=== PATIENT | male | born 1995 | race Caucasian/White ===

== ENCOUNTER 2017-03-13 21:11 | Emergency (ER) | payer OTHER ==
[2017-03-13] MEDS ORDERED: Sodium Chloride 0.9% 1,000 ML IV ONE (21:41)
--- NOTE | 2017-03-13 22:02 | EDM.PDOC ---
<Sekou Johnson - Last Filed: 03/13/17 21:59> ED HPI GI/ABDOMINAL - General Chief Complaint: Abdominal Pain Stated Complaint: VOMIT Time Seen by Provider: 03/13/17 21:40 Source of Information: Reports: Patient History Limitations: Reports: No limitations - History of Present Illness INITIAL COMMENTS - FREE TEXT/NARRATIVE: History of present illness: [21-year-old male presenting with history of bilateral inguinal hernia repair with placement of mesh. Now patient indicates that the area there feels spongy and at times feels painful and like there are bubbles underneath. Patient indicates he's had periods of nausea and vomiting and he feels that there is concern for entrapment and would like to be evaluated. Patient indicates one of his biggest concerns is that he might have had mesh migration.] Review of systems: As per history of present illness and below otherwise all systems reviewed and negative. Past medical history: As per history of present illness and as reviewed below otherwise noncontributory. Surgical history: As per history of present illness and as reviewed below otherwise noncontributory. Social history: No reported history of drug or alcohol abuse. Family history: As per history of present illness and as reviewed below otherwise noncontributory. Physical exam: HEENT: Atraumatic, normocephalic, pupils reactive, negative for conjunctival pallor or scleral icterus, mucous membranes moist, throat clear, neck supple, nontender, trachea midline. Lungs: Clear to auscultation, breath sounds equal bilaterally, chest nontender. Heart: S1S2, regular, negative for clicks, rubs, or JVD. Abdomen: Soft, nondistended, nontender. Negative for masses or hepatosplenomegaly. Negative for costovertebral tenderness. Pelvis: Stable nontender. Genitourinary: Deferred. Rectal: Deferred. Extremities: Atraumatic, negative for cords or calf pain. Neurovascular unremarkable. Neuro: Awake, alert, oriented. Cranial nerves II through XII unremarkable. Cerebellum unremarkable. Motor and sensory unremarkable throughout. Exam nonfocal. Global assessment is benign other than noted in the history of present illness. Lateral inguinal area palpated with soft area noted over area of repair but no bulging appreciated nor entrapment noted. Patient is without any nausea and vomiting at this time he indicates it is worse shortly after eating Diagnostics: [CBC, CMP] Therapeutics: [IV fluid] Impression: [] Plan: [] Definitive disposition and diagnosis as appropriate pending reevaluation and review of above. - Related Data Allergies/ADRs: Allergies Allergy/AdvReac Type Severity Reaction Status Date / Time tramadol Allergy Seizure Verified 03/13/17 21:27 Home Meds: Home Meds . [No Known Home Meds] 10/10/14 [History] Past Medical History - Infectious Disease History Infectious Disease History: Reports: Chicken pox - Past Surgical History GI Surgical History: Reports: Hernia repair/other Other GI Surgeries/Procedures: Bilateral inguinal hernia removal 2012 Social & Family History - Family History Family Medical History: Noncontributory - Tobacco Use Smoking Status *Q: Current Every Day Smoker Years of Tobacco use: 6 Packs/Tins Daily: 0.5 Used Tobacco, but Quit: No Second Hand Smoke Exposure: No - Caffeine Use Caffeine Use: Reports: None - Alcohol Use Days Per Week of Alcohol Use: 0 - Recreational Drug Use Recreational Drug Use: No ED ROS GENERAL - Review of Systems Review Of Systems: See Below (See history of present illness) ED EXAM, GI/ABD - Physical Exam Exam: See Below (The history of present illness) Course - Vital Signs Last Recorded V/S: Last Vital Signs Temp 36.6 C 03/13/17 21:23 Pulse 102 H 03/13/17 21:23 Resp 18 03/13/17 21:23 BP 132/102 H 03/13/17 21:23 Pulse Ox 95 03/13/17 21:23 - Orders/Labs/Meds Orders: Active Orders 24 hr Category Date Time Status Abdomen Pelvis w Cont [CT] Stat Exams 03/13/17 21:41 Taken Sodium Chloride 0.9% [Normal Saline] 1,000 ml Med 03/13/17 21:41 Active IV STAT Medication Orders Sodium Chloride (Normal Saline) 1,000 mls @ 125 mls/hr IV STAT ONE Stop: 03/14/17 05:40 Last Admin: 03/13/17 22:14 Dose: 125 mls/hr Labs: Laboratory Tests 03/13/17 03/13/17 03/13/17 Range/Units 21:45 21:45 21:45 WBC 8.60 (4.0-11.0) K/uL RBC 5.56 (4.50-5.90) M/uL Hgb 16.7 (13.0-17.0) g/dL Hct 47.2 (38.0-50.0) % MCV 84.9 (80.0-98.0) fL MCH 30.0 (27.0-32.0) pg MCHC 35.4 (31.0-37.0) g/dL RDW Std Deviation 39.3 (28.0-62.0) fl RDW Coeff of Ignacio 13 (11.0-15.0) % Plt Count 311 (150-400) K/uL MPV 9.20 (7.40-12.00) fL Neut % (Auto) 45.7 L (48.0-80.0) % Lymph % (Auto) 42.9 H (16.0-40.0) % Pima % (Auto) 10.2 (0.0-15.0) % Eos % (Auto) 1.0 (0.0-7.0) % Baso % (Auto) 0.2 (0.0-1.5) % Neut # (Auto) 3.9 (1.4-5.7) K/uL Lymph # (Auto) 3.7 H (0.6-2.4) K/uL Pima # (Auto) 0.9 H (0.0-0.8) K/uL Eos # (Auto) 0.1 (0.0-0.7) K/uL Baso # (Auto) 0.0 (0.0-0.1) K/uL Nucleated RBC % 0.0 /100WBC Nucleated RBCs # 0 K/uL Sodium 140 (136-146) mmol/L Potassium 3.9 (3.5-5.1) mmol/L Chloride 106 (98-110) mmol/L Carbon Dioxide 24 (21-31) mmol/L BUN 16 (6.0-23.0) mg/dL Creatinine 1.3 (0.6-1.5) mg/dL Est Cr Clr Drug Dosing 106.53 mL/min Estimated GFR (MDRD) > 60.0 ml/min Glucose 87 (60-110) mg/dL Calcium 10.9 H (8.8-10.8) mg/dL Total Bilirubin 1.7 H (0.1-1.5) mg/dL AST 21 (5-40) IU/L ALT 17 (8-54) IU/L Alkaline Phosphatase 69 (40-150) Total Protein 8.1 H (6.0-8.0) g/dL Albumin 4.7 (3.5-5.0) g/dL Globulin 3.4 (2.0-3.5) g/dL Albumin/Globulin Ratio 1.4 (1.3-2.8) Amylase 70 (10-90) U/L Lipase 22 (7-80) U/L Urine Color Urine Appearance Urine pH (5.0-8.0) Ur Specific Goodman (1.001-1.035) Urine Protein (NEGATIVE) mg/dL Urine Glucose (UA) (NEGATIVE) mg/dL Urine Ketones (NEGATIVE) mg/dL Urine Occult Blood (NEGATIVE) Urine Nitrite (NEGATIVE) Urine Bilirubin (NEGATIVE) Urine Urobilinogen (<2.0) EU/dL Ur Leukocyte Esterase (NEGATIVE) Urine RBC (0-2/HPF) Urine WBC (0-5/HPF) Ur Epithelial Cells (NONE-FEW) Urine Bacteria (NEGATIVE) Urine Mucus (NONE-MOD) 03/13/17 Range/Units 23:05 WBC (4.0-11.0) K/uL RBC (4.50-5.90) M/uL Hgb (13.0-17.0) g/dL Hct (38.0-50.0) % MCV (80.0-98.0) fL MCH (27.0-32.0) pg MCHC (31.0-37.0) g/dL RDW Std Deviation (28.0-62.0) fl RDW Coeff of Ignacio (11.0-15.0) % Plt Count (150-400) K/uL MPV (7.40-12.00) fL Neut % (Auto) (48.0-80.0) % Lymph % (Auto) (16.0-40.0) % Pima % (Auto) (0.0-15.0) % Eos % (Auto) (0.0-7.0) % Baso % (Auto) (0.0-1.5) % Neut # (Auto) (1.4-5.7) K/uL Lymph # (Auto) (0.6-2.4) K/uL Pima # (Auto) (0.0-0.8) K/uL Eos # (Auto) (0.0-0.7) K/uL Baso # (Auto) (0.0-0.1) K/uL Nucleated RBC % /100WBC Nucleated RBCs # K/uL Sodium (136-146) mmol/L Potassium (3.5-5.1) mmol/L Chloride (98-110) mmol/L Carbon Dioxide (21-31) mmol/L BUN (6.0-23.0) mg/dL Creatinine (0.6-1.5) mg/dL Est Cr Clr Drug Dosing mL/min Estimated GFR (MDRD) ml/min Glucose (60-110) mg/dL Calcium (8.8-10.8) mg/dL Total Bilirubin (0.1-1.5) mg/dL AST (5-40) IU/L ALT (8-54) IU/L Alkaline Phosphatase (40-150) Total Protein (6.0-8.0) g/dL Albumin (3.5-5.0) g/dL Globulin (2.0-3.5) g/dL Albumin/Globulin Ratio (1.3-2.8) Amylase (10-90) U/L Lipase (7-80) U/L Urine Color YELLOW Urine Appearance CLEAR Urine pH 5.5 (5.0-8.0) Ur Specific Goodman 1.010 (1.001-1.035) Urine Protein NEGATIVE (NEGATIVE) mg/dL Urine Glucose (UA) NEGATIVE (NEGATIVE) mg/dL Urine Ketones NEGATIVE (NEGATIVE) mg/dL Urine Occult Blood NEGATIVE (NEGATIVE) Urine Nitrite NEGATIVE (NEGATIVE) Urine Bilirubin NEGATIVE (NEGATIVE) Urine Urobilinogen 0.2 (<2.0) EU/dL Ur Leukocyte Esterase NEGATIVE (NEGATIVE) Urine RBC 0-1 (0-2/HPF) Urine WBC NONE SEEN (0-5/HPF) Ur Epithelial Cells RARE (NONE-FEW) Urine Bacteria RARE (NEGATIVE) Urine Mucus LIGHT (NONE-MOD) Meds: Medications Generic Name Dose Route Start Last Admin Trade Name Freq PRN Reason Stop Dose Admin Sodium Chloride 1,000 mls @ 125 mls/hr 03/13/17 21:41 03/13/17 22:14 Normal Saline IV 03/14/17 05:40 125 mls/hr STAT ONE Administration Discontinued Medications Generic Name Dose Route Start Last Admin Trade Name Freq PRN Reason Stop Dose Admin Ketorolac Tromethamine 30 mg 03/13/17 22:03 03/13/17 22:18 Toradol IVPUSH 03/13/17 22:04 30 mg ONETIME ONE Administration Ondansetron HCl 4 mg 03/13/17 22:03 03/13/17 22:16 Zofran IVPUSH 03/13/17 22:04 4 mg ONETIME ONE Administration Departure - Departure Disposition: Home, Self-Care 01 Clinical Impression: Abdominal pain Qualifiers: Abdominal location: lower abdomen, unspecified Qualified Code(s): R10.30 - Lower abdominal pain, unspecified Vomiting Qualifiers: Vomiting type: unspecified Vomiting Intractability: non-intractable Nausea presence: with nausea Qualified Code(s): R11.2 - Nausea with vomiting, unspecified Forms: ED Department Discharge Additional Instructions: The following information is given to patients seen in the emergency department who are being discharged to home. This information is to outline your options for follow-up care. We provide all patients seen in our emergency department with a follow-up referral. The need for follow-up, as well as the timing and circumstances, are variable depending upon the specifics of your emergency department visit. If you don't have a primary care physician on staff, we will provide you with a referral. We always advise you to contact your personal physician following an emergency department visit to inform them of the circumstance of the visit and for follow-up with them and/or the need for any referrals to a consulting specialist. The emergency department will also refer you to a specialist when appropriate. This referral assures that you have the opportunity for followup care with a specialist. All of these measure are taken in an effort to provide you with optimal care, which includes your followup. Under all circumstances we always encourage you to contact your private physician who remains a resource for coordinating your care. When calling for followup care, please make the office aware that this follow-up is from your recent emergency room visit. If for any reason you are refused follow-up, please contact the [facility] emergency department at and ask to speak to the emergency department charge nurse. [facility] Primary care- Internal Medicine and Family [address] [address] Push hydration and take medications as prescribed. Please call and followup in the clinic for further care and evaluation and return here as needed and as discussed. Once you are feeling better from the nausea perspective take over-the -counter MiraLAX to help open up the colon as we discussed. <Sulma Atkinson - Last Filed: 03/13/17 23:50> ED HPI GI/ABDOMINAL - History of Present Illness INITIAL COMMENTS - FREE TEXT/NARRATIVE: This is Dr. Atkinson dictating an addendum note as I have assumed care of this patient at 10 PM. The patient gives history and physical as above and says that he is really only vomiting after he needs anything and it is not specific to certain types of foods. He is able to drink water. Patient complains of bilateral lower abdominal pain but not suprapubic pain and has no urinary complaints. On my evaluation he does have tenderness in the lower abdominal areas but I do not appreciate any hernial defects in the inguinal areas bilaterally. He is no rebound or guarding and bowel sounds are hypoactive. He is nontoxic-appearing and vital signs have been reviewed by me. He has no tenderness in the mid or upper abdominal areas. He has no upper abdominal pain and his last bowel movement was today and it was harder than usual. Yesterday's bowel movement was normal. Patient to have fevers chills and currently is in the ER on my evaluation sipping water which I told him this. His hernia repair was done and 2013. Labs above are ordered as well as amylase lipase and UA. CT scan of the abdomen and pelvis was also ordered. I will give him IV fluids Toradol and Zofran. Patient denies any recent travel or new food ingestion. Patient and family at bedside are aware of all testing results and I have specifically discussed the hernia repair with the radiologist at [phone] who assures me that those sites look very good. I related this information to the patient as this was a big concern of his. He has not had any vomiting in the ER and feels much improved and I advised bland diet hydration and followup with primary care as well as MiraLAX as an outpatient. Impression: Vomiting with lower abdominal pain improved stable Departure - Departure Time of Disposition: 23:48 Condition: good
[2017-03-13] MEDS ORDERED: Ondansetron 4 MG/2 ML SDV IVPUSH ONE (22:03)
[2017-03-13] MEDS ORDERED: Ketorolac 30 MG/ML SDV IVPUSH ONE (22:03)
[2017-03-13 22:12] LABS: CHLORIDE,CL 106 mmol/L (98-110); SODIUM,NA 140 mmol/L (136-146)
[2017-03-13] MEDS ORDERED: Iopamidol 755 Mg/ML 100 ML Bottle IVPUSH STA (22:25)
[2017-03-14 00:26] VITALS: BP 127/77
--- NOTE | 2017-03-14 11:30 | CT ---
EXAM DATE: 03/13/17 PATIENT'S AGE: 21 Patient: SAMI MORAN Facility: [place], [place] Site . Site : 1995 Study: CT Abdomen/Pelvis [id number]/13/2017 11:04:16 PM Ordering Physician: Demetrio Ozuna Final Report: INDICATION: low abd pain, nausea, vomiting, searing pain to groin today, left worse than right TECHNIQUE: CT abdomen and pelvis acquired with IV contrast. COMPARISON: None FINDINGS: Lower chest: Unremarkable. Liver: Unremarkable. Spleen: Unremarkable. Pancreas: Unremarkable. Gallbladder and bile ducts: Unremarkable. Kidneys: Unremarkable. Adrenal glands: Unremarkable. GI tract: Moderate amount of stool. Appendix is normal. Vascular structures: Negative. No sign of aneurysm. Lymph nodes: Unremarkable. Miscellaneous: Unremarkable. No free air or significant free fluid. Pelvic Organs: Unremarkable. Bones: Unremarkable for age. IMPRESSION: No acute abnormality of the abdomen and pelvis. Moderate amount of stool. Dictated by Hardik Gonzalez MD @ 03/13/2017 11:28:50 PM Dictated by: Hardik Gonzalez MD @ 03/13/2017 23:28:58 (Electronic Signature) Report Signed by Proxy and Original Signed Document filed in the Medical Record. MTDD
== END 2017-03-14 00:05 | disposition home or self-care (01) ==
LOC: MW.ED 21:11
DX: R11.2 Nausea with vomiting, unspecified (principal); R10.30 Lower abdominal pain, unspecified; F17.210 Nicotine dependence, cigarettes, uncomplicated; Z98.890 Other specified postprocedural states; Z88.5 Allergy status to narcotic agent
CPT/HCPCS: 36415; 74177; 80053; 81001; 82150; 83690; 85025; 96361; 96374; 96375; 99284; J1885; J2405; J7040; Q9967